=== PATIENT | male | born 1970 | race Hispanic/Latino ===

== ENCOUNTER → 2018-10-12 | Outpatient (CLI) | payer BC ==
[~2018-10-12] MED LIST: GLIPIZIDE-METF1 EAC2 PO; GLYBURID-METFO1 EAC3; HYDROCHLOROTHIA25 MG PO; INVOKANA PO; JANUVIA100 MG PO; LANTUS100 UNITS/ SQ; LISINOPRIL10 MG PO; SIMVASTATIN40 MG PO; Z.0.JANUVIA100 MG; Z.0.LANTUS100 UNIT/1; Z.0.LISINOPRIL10 MG
--- NOTE | 2018-10-12 17:23 | Diagnostic Imaging Report ---
Modified barium swallow, 10/12/2018. History: Dysphagia. Fluoro time: 0.7 min. Dose: 5 mGy (DOTTY) Technique: Fluoroscopy was performed by racking technician. A radiologist was not present for exam. Fluoroscopic observation and imaging of the oral cavity, oropharynx, and hypopharynx was performed in the lateral projection during swallowing of liquids and solids, administered by speech pathology. See speech pathologist report for findings. Signed by: Chris Duong on 10/12/2018 5:20 PM
== END ==
LOC: DX 10:36
PROVIDERS: ATTEND Otolaryngology
DX: R07.0 Pain in throat (principal)
CPT/HCPCS: 74230